=== PATIENT | male | born 1940 | race Caucasian/White ===

== ENCOUNTER 2018-04-28 16:50 | Inpatient (IN) | payer MEDICARE, BC | END 2018-05-02 16:30 | disposition home or self-care (01) | LOC: ER 16:50 → ED HOLD 19:42 → ORTHO 4S 22:15 | DX: I63.9 Cerebral infarction, unspecified (principal); I50.21 Acute systolic (congestive) heart failure; I42.8 Other cardiomyopathies; G93.49 Other encephalopathy; I48.91 Unspecified atrial fibrillation ==

== ENCOUNTER 2018-07-23 05:47 | Day surgery (SDC) | payer MEDICARE, BC ==
[2018-07-22 14:35] LABS: BASOPHILS % (AUTO) 0.6 % (0-1); EOSINOPHILS # (AUTO) 0.1 X10'3 (0-0.9); EOSINOPHILS % (AUTO) 1.2 % (0-6); HEMATOCRIT 47.1 % (42.0-52.0); HEMOGLOBIN 15.8 g/dl (14.0-17.9); LYMPHOCYTES # (AUTO) 1.3 X10'3 (1.1-4.8); LYMPHOCYTES % (AUTO) 18.7 % (21-51); MEAN CORPUSCULAR HEMOGLOBIN 30.8 PG (27.0-31.0); MEAN CORPUSCULAR HGB CONC 33.5 g/dL (33.0-36.5); MEAN CORPUSCULAR VOLUME 91.8 FL (78-98); MEAN PLATELET VOLUME 7.6 FL (7.4-10.4); MONOCYTES # (AUTO) 0.6 X10'3 (0-0.9); MONOCYTES % (AUTO) 8.6 % (2-12); NEUTROPHILS % (AUTO) 70.9 % (42-75); PLATELET COUNT 205 X10'3 (140-440); RED BLOOD COUNT 5.13 X10'6 (4.70-6.10); RED CELL DISTRIBUTION WIDTH 14.4 % (11.5-14.5)
[2018-07-22 14:40] LABS: INR 1.1 INR
[2018-07-22 14:42] LABS: ALBUMIN 3.9 G/DL (3.4-5.0); ANION GAP 10 (8-16); BLOOD UREA NITROGEN 20 MG/DL (7-18); BUN/CREATININE RATIO 23.3 (5.4-32.0); CALCIUM 9.5 MG/DL (8.5-10.1); CHLORIDE 105 MMOL/L (99-107); CREATININE 0.86 MG/DL (0.60-1.10); GLUCOSE 85 MG/DL (70-104); POTASSIUM 4.2 MMOL/L (3.5-5.1); SODIUM 138 MMOL/L (135-145); TOTAL CARBON DIOXIDE 23.3 MMOL/L (24-32); eGFR 86 ML/MIN
[~2018-07-23] VITALS: Ht 177.8 cm; Wt 83.6 kg
[2018-07-23] VITALS (56 sets, daily range): BP systolic 77–155; BP diastolic 39–86
[~2018-07-23 05:47] MED LIST: ATOR20TA66 PO; CARV6.253 PO; LISI2.5T2 PO; METO-395 PO; SPIR25TA PO
[2018-07-23] MEDS ORDERED: MIDAZolam 5mg/ml 2ml vial IV ONE (06:40)
[2018-07-23] MEDS ORDERED: diphenhydrAMINE 25mg capsule PO ONE ×2 (06:40)
[2018-07-23] MEDS ORDERED: morphine 10mg/ml inj. IV ONE (06:40)
[2018-07-23] MEDS ORDERED: LORazepam 0.5 MG tablet PO ONE (06:40)
[2018-07-23] MEDS ORDERED: atropine 0.1mg/ml 10ml syringe IV ONE (06:40)
[2018-07-23] MEDS ORDERED: normal saline 1000ml 1,000 ML IV SCH (06:40)
[2018-07-23] MEDS ORDERED: amiodarone in dextrose, iso-osm 150mg/100ml bag IV ONE (06:40)
[2018-07-23] MEDS ORDERED: ATOR40TA72 PO (06:50)
[2018-07-23] MEDS ORDERED: APIX5TAB3 PO (06:50)
[2018-07-23] MEDS ORDERED: LISI2.5T2 PO (06:50)
[2018-07-23] MEDS ORDERED: AMIO200T40 PO (06:50)
[2018-07-23] MEDS ORDERED: CARV6.256 PO (06:50)
[2018-07-23] MEDS ORDERED: DIGO125T78 PO (06:50)
[2018-07-23] MEDS ORDERED: METO-539 PO (06:50)
[2018-07-23] MEDS ORDERED: SPIR25TA5 PO (06:50)
--- NOTE | 2018-07-23 09:40 | NUR ---
Gave PT two 250ml boluses.
--- NOTE | 2018-07-23 10:09 | NUR ---
Called MD regarding PT's blood pressure and heart rate. MD stated to start a Dopamine gtt at 5 mcg/kg/hr and will reassess this afternoon. Educated PT and PT's .
[2018-07-23] MEDS ORDERED: DOPamine 400mg/D5W 250ml 250 ML IV SCH (10:10)
--- NOTE | 2018-07-23 14:04 | NUR ---
Problems reprioritized. Patient report given, questions answered & plan of care reviewed with KAREN Cota.
--- NOTE | 2018-07-23 14:05 | NUR ---
Patient in room . I have received report from Clarita Munoz and had the opportunity to ask questions and assume patient care. Pt sitting up in bed visiting with and family friend. Pt denies CP, denies SOB. Pt refuses anything to eat or drink at this time. Call light is at bedside. Will continue to monitor
== END 2018-07-23 15:15 | disposition home or self-care (01) ==
LOC: SSTAY O 05:47
PROVIDERS: ATTEND Internal Medicine Cardiovascular Disease
DX: I48.0 Paroxysmal atrial fibrillation (principal); I48.91 Unspecified atrial fibrillation; I42.9 Cardiomyopathy, unspecified; I50.9 Heart failure, unspecified; I11.0 Hypertensive heart disease with heart failure; E78.5 Hyperlipidemia, unspecified; Z86.73 Personal history of transient ischemic attack (TIA), and cerebral infarction without residual deficits; I49.5 Sick sinus syndrome
CPT/HCPCS: 36415; 80048; 85025; 85610; 92960; 93005; J0282; J0461; J1265; J2250; J2270; J7030

== ENCOUNTER 2018-10-09 06:49 | Day surgery (SDC) | payer MEDICARE, BC ==
[2018-10-08 15:56] LABS: BASOPHILS % (AUTO) 0.5 % (0-1); EOSINOPHILS # (AUTO) 0.1 X10'3 (0-0.9); EOSINOPHILS % (AUTO) 0.9 % (0-6); HEMATOCRIT 44.1 % (42.0-52.0); HEMOGLOBIN 14.9 g/dl (14.0-17.9); LYMPHOCYTES # (AUTO) 1.1 X10'3 (1.1-4.8); LYMPHOCYTES % (AUTO) 16.4 % (21-51); MEAN CORPUSCULAR HEMOGLOBIN 32.1 PG (27.0-31.0); MEAN CORPUSCULAR HGB CONC 33.8 g/dL (33.0-36.5); MEAN CORPUSCULAR VOLUME 95.1 FL (78-98); MEAN PLATELET VOLUME 7.2 FL (7.4-10.4); MONOCYTES # (AUTO) 0.6 X10'3 (0-0.9); MONOCYTES % (AUTO) 8.3 % (2-12); NEUTROPHILS # (AUTO) 5.1 X10'3 (1.8-7.7); NEUTROPHILS % (AUTO) 73.9 % (42-75); PLATELET COUNT 204 X10'3 (140-440); RED BLOOD COUNT 4.63 X10'6 (4.70-6.10); RED CELL DISTRIBUTION WIDTH 13.4 % (11.5-14.5); WHITE BLOOD COUNT 6.9 X10'3 (4.5-11.0)
[2018-10-08 16:09] LABS: ALBUMIN 3.7 G/DL (3.4-5.0); ANION GAP 7 (8-16); BLOOD UREA NITROGEN 20 MG/DL (7-18); BUN/CREATININE RATIO 21.5 (5.4-32.0); CALCIUM 8.9 MG/DL (8.5-10.1); CHLORIDE 104 MMOL/L (99-107); CREATININE 0.93 MG/DL (0.60-1.10); GLUCOSE 84 MG/DL (70-104); POTASSIUM 4.1 MMOL/L (3.5-5.1); SODIUM 136 MMOL/L (135-145); TOTAL CARBON DIOXIDE 24.9 MMOL/L (24-32); eGFR 79 ML/MIN
[2018-10-08 16:10] LABS: PARTIAL THROMBOPLASTIN TIME 31 SECONDS (22-32)
[~2018-10-09] VITALS: Ht 177.8 cm; Wt 83.0 kg
[2018-10-09] VITALS (12 sets, daily range): BP systolic 107–147; BP diastolic 57–78
[~2018-10-09 06:49] MED LIST changes: +AMIO200T40 PO; +APIX5TAB3 PO; -ATOR20TA66 PO; +ATOR40TA72 PO; -CARV6.253 PO; +CARV6.256 PO; +DIGO125T78 PO; -METO-395 PO; +METO-539 PO; -SPIR25TA PO; +SPIR25TA5 PO
[2018-10-09] MEDS ORDERED: normal saline 1000ml 1,000 ML IV SCH ×2 (07:15→10:55)
[2018-10-09] MEDS ORDERED: cefazolin/dext.iso 2gm/100ml 100 ML IV ONE (07:15)
[2018-10-09] MEDS ORDERED: fentaNYL/PF 50MCG/1 ML 2ML syringe ONE (08:58)
[2018-10-09] MEDS ORDERED: LIDOcaine 1% w/EPI 1:100,000 30ml vial (MDV) ONE (08:58)
[2018-10-09] MEDS ORDERED: midazolam 2 mg/2 ml injection ONE (08:58)
[2018-10-09] MEDS ORDERED: ceFAZolin 1000mg inj ONE (09:01)
[2018-10-09] MEDS ORDERED: LORazepam 1 MG tablet PO PRN (10:50)
[2018-10-09] MEDS ORDERED: HYDROcodone/acetaminophen 5mg/325mg tablet PO PRN (10:50)
[2018-10-09] MEDS ORDERED: HYDROcodone/acetaminophen 10/325mg tab PO PRN (10:50)
[2018-10-09] MEDS ORDERED: sod chloride 0.9% 10ml flush syringe IV SCH (16:00)
== END 2018-10-09 16:20 | disposition home or self-care (01) ==
LOC: SSTAY O 06:49
PROVIDERS: ATTEND Internal Medicine Cardiovascular Disease
DX: I49.5 Sick sinus syndrome (principal); I42.0 Dilated cardiomyopathy; I10 Essential (primary) hypertension; E78.5 Hyperlipidemia, unspecified; I42.9 Cardiomyopathy, unspecified; I48.91 Unspecified atrial fibrillation; Z86.73 Personal history of transient ischemic attack (TIA), and cerebral infarction without residual deficits
CPT/HCPCS: 33208; 36415; 71046; 80048; 85025; 85610; 85730; 93005; 99152; 99153; C1785; C1894; C1898; J0690; J2250; J3010; J3370; J7030; A4565; A4620; A6449

== ENCOUNTER 2019-05-12 15:21 | Outpatient (CLI) | payer MEDICARE, BC ==
[~2019-05-12 15:21] MED LIST changes: -AMIO200T40 PO; +AMIO200T61 PO; -DIGO125T78 PO; -METO-539 PO
== END 2019-05-12 23:59 | disposition home or self-care (01) ==
LOC: VAS 15:21
PROVIDERS: ATTEND Internal Medicine Cardiovascular Disease
DX: I65.23 Occlusion and stenosis of bilateral carotid arteries (principal)
CPT/HCPCS: 93880